=== PATIENT | female | born 1980 | race American Indian/Alaskan Native ===

== ENCOUNTER 2021-08-26 16:08 | Outpatient (REF) | payer OTHER, SELFPAY ==
--- NOTE | 2021-08-26 15:45 | PAPFT_PTH ---
PATIENT: Lien Mustafa LOC: [facility] U#:[id number] AGE/SX: 41/F ROOM: RE08/26/[address]: RAJWINDER Chris : 1980 BED: DIS: 08/26/2021 SPEC #: [id number] RECD: 08/26/21 18:18 STATUS: MANDEEP REQ #: [id number] JESSICA: 08/26/21 15:[address]: Luisa Alonso DEPT: [facility] Cytology RECD BY: Bela Montano ENTERED: 08/26/21 18:19 SP TYPE: PAPFT CORNELIUS DR: Unknown,Unknown Tissues: 1 - CX/ENDOCX FOR PAP SMEARS Procedures: PAP THIN PREP/[facility] Screening HPV DNA PROBE Comments: [id number]
== END 2021-08-26 16:09 | disposition home or self-care (01) ==
LOC: LBN 16:08
PROVIDERS: Visit Provider Nurse Practitioner Family
DX: Z12.4 Encounter for screening for malignant neoplasm of cervix (principal); Z11.51 Encounter for screening for human papillomavirus (HPV)
CPT/HCPCS: 88142; 87624

== ENCOUNTER 2021-12-26 16:23 | Outpatient (REF) | payer OTHER, SELFPAY ==
[2021-12-28 10:40] LABS: COVID-19 RT-PCR UVMMC Result Positive (Negative)
== END 2021-12-26 16:24 | disposition home or self-care (01) ==
LOC: LBN 16:23
PROVIDERS: Visit Provider Nurse Practitioner Family
DX: Z20.822 Contact with and (suspected) exposure to COVID-19 (principal)
CPT/HCPCS: U0003

== ENCOUNTER 2024-06-29 03:25 | Outpatient (CLI) | payer BC, SELFPAY ==
--- NOTE | 2024-06-29 07:15 | DI.MAMMO_ITS ---
Exam(s) MAMMO SCREENING EXAM: MAMMO SCREENING CLINICAL HISTORY: screening,z12.39 TECHNIQUE: Bilateral full field digital CC and MLO mammographic images were obtained with 3D tomosyn thesis and utilizing computer aided detection (CAD). COMPARISON: This is a baseline examination. FINDINGS: Masses/Architectural Distortion: There is a focal asymmetry in the upper central left breast on the M LO view 3 cm from the nipple. This may represent overlying fibroglandular tissue, but a spot richard cachorro views requested for further evaluation. Microcalcifications: No suspicious pleomorphic-type are seen. Skin Thickening/Nipple Retraction: None. IMPRESSION: 1. Focal asymmetry in the upper central left breast on the MLO view 3 cm from the nipple. 2. A spot compression views requested for further evaluation. Ultrasound may be indicated at that ti me. BI-RADS Category 0 - Incomplete: Need additional imaging evaluation Breast Density - Category B - Scattered areas of fibroglandular density Breast density category C or D implies that the patient has dense breast tissue. Dense breast tissue is very common and is not abnormal but dense breast tissue can make it harder to find cancer on a ma mmogram. Also, dense breast tissue may increase their breast cancer risk. This information about the result of the mammogram report was provided to the patient to raise their awareness. Use this report when you speak with the patient about their risks for breast cancer, which includes their family hist ory. At that time, you may recommend for more screening tests (Ultrasound or MRI) as they might be us eful based on their risk. A negative radiographic report should not delay biopsy if a dominant or clinically suspicious mass is present. Up to ten percent of cancers are not identified on mammography. A negative report may reinforce clinical impression. Adenosis and dense breasts may obscure an underlying neoplasm. False positive reports average 6 to 10%. Patient will receive a letter notifying them of these results.
--- NOTE | 2024-06-29 11:30 | DI.US_ITS ---
Exam(s) US PELVIS TRANSVAGINAL EXAM: US PELVIS TRANSVAGINAL CLINICAL HISTORY: abnl uterine bleeding,n93.9. TECHNIQUE: Transabdominal and transvaginal pelvic ultrasound was performed using standard protocol. COMPARISON: No exams were available for comparison FINDINGS: UTERUS: Position: Anteverted. Size: 9.8 long by 4.1 AP by 4.8 transverse cm Endometrium: 1.4 cm. Normal for patient's menstrual status. There is a 0.6 x 0.5 cm echogenic nodule seen within the endometrium on the left suggestive of a endometrial polyp. Myometrium: There is a 0.9 x 0.5 cm hypoechoic nodule adjacent to the endometrium anteriorly likely r eflecting a fibroid. Cervix: Nabothian cysts are present. OVARIES: Right: 3.4 x 1.6 x 3.1 cm Cyst or mass: No suspicious cystic or solid masses. Left: 3.0 x 2.7 x 3.1 cm Cyst or mass: No suspicious cystic or solid masses. DOPPLER: Color: Symmetric and uniform flow to both ovaries. CUL-DE-SAC: Free fluid: None. Other: None. IMPRESSION: 1. Endometrial stripe at the upper limits of normal in size. 2. Findings suggestive of a 0.6 x 0.5 cm endometrial polyp. 3. 0.9 x 0.5 cm uterine fibroid. 4. Unremarkable bilateral ovaries. DATA REPOSITORY:
== END 2024-06-29 03:45 ==
PROVIDERS: Visit Provider Nurse Practitioner Women's Health
DX: Z12.31 Encounter for screening mammogram for malignant neoplasm of breast (principal); N93.9 Abnormal uterine and vaginal bleeding, unspecified; R92.323 Mammographic fibroglandular density, bilateral breasts
CPT/HCPCS: 77063; 77067; 76830; 76856

== ENCOUNTER 2024-07-08 00:34 | Outpatient (CLI) | payer BC, SELFPAY ==
--- NOTE | 2024-07-08 | DI.US_ITS ---
Exam(s) MAMMO SCREEN CALL BACK UNI US BREAST LT LIMITED EXAM: MAMMO SCREEN CALL BACK UNI CLINICAL HISTORY: Focal asymmetry, upper central lt breast, 3 cm from nipple. TECHNIQUE: Mediolateral oblique spot compression digital Mammography views of the leftbreast with T omosynthesis and left breast ultrasound. COMPARISON: [facility] MAMMO SCREENING from 06/29/2024 FINDINGS: Mammography/Tomosynthesis: Masses: None seen. No persistent abnormality is seen in the subareolar region of the left breast. F indings are consistent with overlying fibroglandular tissue. Architectural Distortion: None seen. Microcalcifictions: No suspicious pleomorphic-type are seen. Skin Thickening/Nipple Retraction: None. Left breast US: Echotexture: Normal appearance of the glandular tissue. Shadowing: No suspicious foci. Cyst: None. Solid lesions: None seen. Ductal dilation: None. IMPRESSION: 1. No evidence of malignancy is noted. 2. Unless there is more urgent need, follow-up screening mammography is recommended, as per [place] [employer] guidelines. 3. The findings were discussed with the patient on the date of the examination. BI-RADS Category 1 - Negative Breast Density - Category B - Scattered areas of fibroglandular density A negative radiographic report should not delay biopsy if a dominant or clinically suspicious mass is present. Up to ten percent of cancers are not identified on mammography. A negative report may reinforce clinical impression. Adenosis and dense breasts may obscure an underlying neoplasm. False positive reports average 6 to 10%. Patient will receive a letter notifying them of these results.
--- OUTSIDE RECORDS SUMMARY | 2024-07-08 00:37 | XMS_ITS | Encounter Summary ---
Author Organization [facility] Address [address] [place] [address] Care Team Providers Care Director Peoplesoft Name Role Phone Unavailable Primary Care Provider Unavailabl e Encounter Details Date Type Department Care Team (Late st Contact Info) Description 08/27/2021 Lab Requisition [facility] Pathology & Laboratory Medicine - [address] [address] [address] [place] [address] Encounter for other general examination Social History Tobacco Use Types Packs/Day Years Used Date Smoking Tobacco: Never Assessed Comments Unknown Sex and Gender Information Value Date Recorded Sex Assigned at Not on file Legal Sex Female 14:06 EST Gender Identity Not on file Sexual Orientation Not on file documented as of this encounter Plan of Treatment Not on file documented as of this encounter Procedures Procedure Name Priority Date/Time Associated Diagnosis Comments PAP TEST Today 08/26/2021 15:45 EST Encounter for other general examination HPV DNA DETECTION WITH GENOTYPING, PCR Today 08/26/2021 15:45 EST Encounter for other general examination documented in this encounter Results * HUMAN PAPILLOMAVIRUS (HPV) DETECTION-HIGH RISK TYPES (08/26/2021 15:45 EST) HPV other High Risk types, PCR Negative Negative 09/05/2021 9:00 EST [facility] Comment:No E6 or E7 mRNA is detected from HPV types 16,18,31,33,35,39,45,51,52,56,58,59,66, and 68 by asphalt smoother mediated amplification. Papanicolaou smear specimen (specimen) CERVIX UTERI STRUCTURE / Unknown 08/26/2021 15:45 EST 09/03/2021 15:00 EST Luisa PURDY MICROBIOLOGY - GENERAL ORDER RENETTA Final Result Performing Organization Address City/[facility]/ZIP Co de Phone Number [facility] [address] [place] [address] * PAP TEST (08/26/2021 15:45 EST) Specimens A. Cervix and/or Endocervix , ThinPrep Imaging System with Manual Evaluation 09/05/2021 9:00 [facility] Specimen Adequacy Satisfactory for Evaluation - transformation zone component present 09/05/2021 9:00 [facility] General Categorization Negative for intraepithelial lesion or malignancy 09/05/2021 9:00 [facility] Attestation . 09/05/2021 9:00 [facility] at 0900 Clinical History SEE BELOW 09/05/19 9:00 [facility] HPV The result for the Human Papillomavirus (HPV) Detection-High Risk Types is Negative. No E6 or E7 mRNA is detected from HPV types 16,18,31,33,35,39 ,45,51,52,56,58,5 9,66, and 68 by asphalt smoother mediated amplification.Sari ting was performed on specimen [id number] and was resulted on 09/05/2021 0733 EST by YVETTE, LAB INSTRUMENT RESULTS IN 09/05/2021 9:00 [facility] Performing Lab [facility] 09/05/2021 9:00 [facility] Scanned Images 09/05/2021 9:00 [facility] Papanicolaou smear specimen (specimen) CERVIX UTERI STRUCTURE / Unknown 08/26/2021 15:45 EST 08/27/2021 14:09 EST Luisa PURDY PATHOLOGY ORDERABLES Final R esult [facility] [address] [place] [address] documented in this encounter Visit Diagnoses Diagnosis Encounter for other general examination documented in this encounter Additional Health Concerns Infection Onset Date Last Indicated Resolved Time COVID-19 12/26/2021 12/26/2021 01/15/2022 22:1 5 EDT documented as of this encounter
--- OUTSIDE RECORDS SUMMARY | 2024-07-08 00:37 | XMS_ITS | Referral Summary ---
Author Organization [facility] Address [address] [place] [address] Care Team Providers Care Size Worker Name Role Phone Unavailable Primary Care Provider Unavailabl e Social History Tobacco Use Types Packs/Day Years Used Date Smoking Tobacco: Never Assessed Comments Unknown Sex and Gender Information Value Date Recorded Sex Assigned at Not on file Legal Sex Female 14:06 EST Gender Identity Not on file Sexual Orientation Not on file Plan of Treatment Not on file
--- OUTSIDE RECORDS SUMMARY | 2024-07-08 00:37 | XMS_ITS | Encounter Summary ---
Author Organization [facility] Address [address] [place] [address] Care Team Providers Care Seasonal Package Handler Name Role Phone Unavailable Primary Care Provider Unavailabl e Encounter Details Date Type Department Care Team (Late st Contact Info) Description 12/27/2021 Lab Requisition [facility] Pathology & Laboratory Medicine - [address] [address] Outr Resulting Lab, Provider Social History Tobacco Use Types Packs/Day Years [...] Procedure Name Priority Date/Time Associated Diagnosis Comments ZZCOVID-19 TEST [facility] PCR Today 12/26/2021 15:00 EDT COVID-19 TESTING Routine 12/26/2021 15:0 0 EDT documented in this encounter Results * COVID-19 TEST [facility] PCR (12/26/2021 15:00 EDT) Swab 12/26/2021 15:0 0 EDT 12/27/2021 17:10 EDT us Provider Outr Resulting Lab MICROBIOLOGY - GENER AL ORDERABLES Final Result [facility] [address] [place] [address] * (ABNORMAL) COVID-19 TESTING (12/26/2021 15:00 EDT) COVID-19 rt-PCR Result Positive( AA) Negative 12/28/2021 10:35 EDT [facility] Comment: This test has not been FDA cleared or approved. This test has been authorized by FDA under an EUA for use by authorized laboratories. This test has been authorized only for detection of nucleic acid from 2019-nCoV, not for any other viruses or pathogens. This test is only authorized for the duration of the declaration that circumstances exist justifying the authorization of emergency use of in vitro diagnostic tests for detection and/or diagnosis of 2019-nCoV under section 564(b)(1) of Act, 21 U.S.C ?? 360bbb-3(b) (1), unless the authorization is terminated or revoked sooner. Testing was performed using the marcie SARS-CoV-2 assay ([employer] on the Marcie 6800 System Performing Lab [address] [facility] 12/28/2021 10:35 EDT [facility] Swab 12/26/2021 15:0 0 EDT 12/27/2021 17:10 EDT us Provider Outr Resulting Lab MICROBIOLOGY - GENER AL ORDERABLES Final Result [facility] [address] [place] [address] documented in this encounter Visit Diagnoses Not on filedocumented in this encounter Additional Health Concerns Infection Onset Date Last Indicated Resolved Time COVID-19 12/26/2021 12/26/2021 01/15/2022 22:1 5 EDT documented as of this encounter
--- OUTSIDE RECORDS SUMMARY | 2024-07-08 00:37 | XMS_ITS | Clinical Summary ---
Author Organization [facility] Address [address] [place] [id number] Care Team Providers Care Robotic Welding Operator Name Role Phone Unavailable Primary Care Provider Unavailabl e Social History Tobacco Use Types Packs/Day Years Used Date Smoking Tobacco: Never Assessed Comments Unknown Sex and Gender Information Value Date Recorded Sex Assigned at Not on file Legal Sex Female 14:06 EST Gender Identity Not on file Sexual Orientation Not on file Plan of Treatment Health Maintenance Due Date Last Done Comments Hepatitis C Screen 1980 Hepatitis B Vaccine (1 of 3 - 19+ 3-dose series) 01/03 COVID-19 Vaccine ( season) 2024
== END 2024-07-08 00:54 ==
LOC: DI 00:34
PROVIDERS: Visit Provider Nurse Practitioner Women's Health
DX: Z12.31 Encounter for screening mammogram for malignant neoplasm of breast (principal); R92.323 Mammographic fibroglandular density, bilateral breasts
CPT/HCPCS: 76642; 77063; 77067

== ENCOUNTER 2024-07-28 09:46 | Outpatient (CLI) | payer BC, SELFPAY ==
[2024-07-28 10:24] LABS: Abs Immature Grans 0.01 10^3/uL (0.0-0.06); Absolute Basophil Count 0.03 10^3/uL (0.0-0.2); Absolute Eosinophil Count 0.08 10^3/uL (0.0-0.7); Absolute Lymphocyte Count 2.16 10^3/uL (1.2-3.4); Absolute Monocyte Count 0.31 10^3/uL (0.1-0.8); Absolute Neutrophil Count 3.09 10^3/uL (1.2-6.7); Basophils % 0.5 %; Eosinophils % 1.4 %; HCT 36.9 % (36.0-46.0); Immature Grans % 0.2 %; MCH 28.4 pg (27.0-33.0); MCHC 32.5 % (32.0-36.0); MCV 87 fL (80-95); Monocytes % 5.5 %; Neutrophils % 54.4 %; Platelet Count 326 10^3/uL (130-400); RBC 4.22 10^6/uL (3.93-5.22); RDW-SD 44.8 fL; WBC 5.68 10^3/uL (4.4-10.8)
[2024-07-28 11:00] LABS: Cholesterol 172 mg/dL (<200); HDL Cholesterol 55 mg/dL (40-60); LDL CHOLESTEROL 101 mg/dL (<100); Triglyceride 111 mg/dL (<150)
[2024-07-28 11:07] LABS: ALT 26 U/L (14-59); AST 19 U/L (15-37); Albumin 3.5 g/dL (3.4-5.0); Alkaline Phosphatase 50 U/L (46-116); Anion Gap 7.1 mmol/L (3-11); BUN 15 mg/dL (7-18); CO2 26.9 mmol/L (21.0-32.0); CREATININE 0.9 mg/dL (0.55-1.02); Calcium 8.9 mg/dL (8.5-10.1); Chloride 108 mmol/L (98-107); Estimated GFR 81.86 (mL/min/1.73m2); Glucose 93 mg/dL (74-106); HCG Quant, Pregnancy 1 mIU/mL (1-3); Potassium 4.4 mmol/L (3.5-5.1); Sodium 142 mmol/L (136-145); TSH (W/Ref FT4) 2.23 uIU/mL (0.36-3.74); Total Protein 7.5 g/dL (6.4-8.2)
[2024-07-28 19:01] LABS: FSH 15.6 mIU/mL (See Note)
== END 2024-07-28 09:47 | disposition home or self-care (01) ==
LOC: LBO 09:47
PROVIDERS: Visit Provider Obstetrics & Gynecology
DX: N93.9 Abnormal uterine and vaginal bleeding, unspecified (principal); Z13.9 Encounter for screening, unspecified; N92.0 Excessive and frequent menstruation with regular cycle; Z13.220 Encounter for screening for lipoid disorders; O26.859 Spotting complicating pregnancy, unspecified trimester
CPT/HCPCS: 36415; 80053; 83721; 86850; 86900; 86901; 82465; 83001; 83718; 84443; 84478; 84702; 85025

== ENCOUNTER 2024-08-10 07:22 | Day surgery (SDC) | payer BC, SELFPAY ==
[2024-08-10 07:42] VITALS: BP 109/58; PULSE 62; RESP 16; TEMP 36.8; O2SAT 97
[2024-08-10] MEDS: Lactated Ringers 1,000 ML 80 ML IV (07:50)
--- NOTE | 2024-08-10 07:53 | W.ANESPRE ---
General Info Date of Service Date Performed: 08/10/24 Height: 5 ft 3.5 in Weight: 90.2 kg Body Mass Index (BMI): 34.7 Surgical Procedure: Operation Date: 08/10/24 09:10 Proposed Procedure Side Surgeon p Dilation & Curettage, Polypectomy Dorothy York MD s Insertion of IUD Dorothy York MD Meds Allergies and Home Medications Allergies Allergy/AdvReac Type Severity Reaction Status Date / Time latex Allergy Intermediate Skin Rash Verified 08/10/24 07:39 pencillin AdvReac Mild Other (See Uncoded 08/10/24 07:39 Comment) Home Medication ?Medication ?Instructions ?Recorded ascorbate calcium (vitamin C) 500 500 mg PO DAILY PRN 07/28/24 mg tablet Current Visit Medications: Current Medications Generic Name Dose Route Start Last Admin Trade Name Freq PRN Reason Stop Dose Admin Ringer's Solution 1,000 mls @ 80 mls/hr 08/10/24 07:15 IV 09/09/24 07:14 INFUSION OLE IV Miscellaneous Supplies 1 each 08/10/24 06:00 Iv Access IV 08/10/24 23:59 DIRECTED OLE Sodium Chloride 0 ml 08/10/24 06:00 Normal Saline Flush 10 Ml Syr IV 08/10/24 23:59 PRN PRN Sodium Chloride 0 ml 08/10/24 06:00 Normal Saline 10 Ml Vial IJ 08/10/24 23:59 DIRECTED PRN Sterile Water 0 ml 08/10/24 06:00 Water,Injection,Sterile 10 Ml Vial IJ 08/10/24 23:59 DIRECTED PRN PFSH Active Problems Active Problems: Problem Status Onset Code Abnormal uterine bleeding (AUB) Acute N93.9 Medical History Medical History Asthma Genital warts Migraine Tobacco Smoking/Tobacco Use Status: Never Passive smoking exposure: No Second hand exposure: No Alcohol Alcohol Intake: never Substance Use Substance use: Never Substance use type: does not use Prental History History 1 Para 1 Hx # Term Pregnancies Multiple births Hx # Pregnancies Ectopic pregnancies AB induced Hx Number of Living Children 1 AB spontaneous Vital Signs and Lab Results Vital Signs Most Recent Vital Signs in EMR: Most Recent Vital Signs Temp Pulse Resp BP Pulse Ox 36.8 C 62 16 109/58 L 97 08/10/24 07:42 08/10/24 07:42 08/10/24 07:42 08/10/24 07:42 08/10/24 07:42 Lab Results Blood Type / Crossmatch: Antibody Screen NEGATIVE 07/28/24 Complete Blood Count: White Blood Count 5.68 10^3/uL (4.4-10.8) 07/28/24 10:10 Red Blood Count 4.22 10^6/uL (3.93-5.22) 07/28/24 10:10 Hemoglobin 12.0 g/dL (11.2-15.7) 07/28/24 10:10 Hematocrit 36.9 % (36.0-46.0) 07/28/24 10:10 Platelet Count 326 10^3/uL (130-400) 07/28/24 10:10 Complete Metabolic Panel: Sodium 142 mmol/L (136-145) 07/28/24 10:10 Potassium 4.4 mmol/L (3.5-5.1) 07/28/24 10:10 Chloride 108 mmol/L (98-107) H 07/28/24 10:10 Carbon Dioxide 26.9 mmol/L (21.0-32.0) 07/28/24 10:10 BUN 15 mg/dL (7-18) 07/28/24 10:10 Creatinine 0.9 mg/dL (0.55-1.02) 07/28/24 10:10 Est GFR (CKD-EPI 2020) 81.86 (mL/min/1.73m2) 07/28/24 10:10 Calcium 8.9 mg/dL (8.5-10.1) 07/28/24 10:10 Albumin 3.5 g/dL (3.4-5.0) 07/28/24 10:10 Glucose 93 mg/dL (74-106) 07/28/24 10:10 Liver Function Panel: Alanine Aminotransferase (ALT/SGPT) 26 U/L (14-59) 07/28/24 10:10 Aspartate Amino Transf (AST/SGOT) 19 U/L (15-37) 07/28/24 10:10 Coagulation Panel: No Data to Display Cardiac Panel: No Data to Display Arterial Blood Gas: No Data to Display Venous Blood Gas: No Data to Display Pancreas Panel: No Data to Display Thyroid Panel: Thyroid Stimulating Hormone (TSH) 2.23 uIU/mL (0.36-3.74) 07/28/24 10:10 Infectious Disease: No Data to Display Blood Cultures: No Data to Display Toxicology Panel: No Data to Display Panel: Beta HCG, Quantitative 1 mIU/mL (1-3) 07/28/24 10:10 Anesthesia Assessment and Plan Anesthesia History Personal History: No History of General Anesthesia Family History: No Family History of Anesthesia Complications Exercise Tolerance Exercise Tolerance: Metabolic Equivalents>4 Cardiac & Pulmonary Exam Cardiac Exam: Normal S1/S2 Heart Sounds Pulmonary Exam: Clear Bilateral Breath Sounds Implantable Cardiac Device Does patient have a Pacemaker or an ICD?: No Airway Exam Known Difficult Airway: No Mallampati Class: 2 Mouth Opening: Normal (> 3cm) Thyromental Distance: Greater than 3 cm Neck Range of Motion: Full ROM Neck Circumference: Normal Teeth Condition: Normal Dentition ASA Classification ASA Score: ASA 2 Emergency Case?: No NPO Status NPO Status: NPO Clears >2 hours, Solids >8 hours Status Status: Negative HCG Anesthesia Plan Resuscitation Status: Full Code Anesthesia Technique: General Anesthesia Airway Planned: LMA Monitors Used: Standard Monitors Preoperative Comments:: 44 yo female for D/C. Sig PMHx: asthma (has not rx inhaler and does not use one. Seems mostly with heavy exertion), migraine (aura/visual type. no meds for it). never smoker, no EtOH. Denies GERD outside of spicy food. Appropriately NPO.
[2024-08-10 07:56] VITALS: BMI 34.7
--- NOTE | 2024-08-10 09:35 | ENDOMET_PTH ---
PATIENT: Lien Mustafa LOC: [facility] U#:[id number] AGE/SX: 44/F ROOM: RE08/10/[address]: Dorothy York MD : 1980 BED: DIS: 08/10/2024 SPEC #: [id number] RECD: 08/10/24 12:31 STATUS: MANDEEP REQ #: [id number] JESSICA: 08/10/24 09:[address]: Dorothy York DEPT: Surgical Specimen RECD BY: Bela Montano ENTERED: 08/10/24 12:32 SP TYPE: Endomet OTHR DR: None Tissues: 1 - ENDOMETRIUM BX/LIZETTE Procedures: GROSS AND MICRO LEVEL 4 Comments: [id number]
[2024-08-10] MEDS: Silver Nitrate Stick 1 EACH (09:38)
[2024-08-10 09:49] VITALS: BP 105/93; PULSE 60; RESP 16; TEMP 36.1; O2SAT 95
--- NOTE | 2024-08-10 10:03 | W.PM.OP ---
Operative Note Operative Note PRE-OP DIAGNOSIS: AUB, endometrial polyp POST-OP DIAGNOSIS: same PROCEDURE: D&C, polypectomy, Liletta IUD insertion SURGEON: Dorothy York Refer to Anesthesia Record ESTIMATED BLOOD LOSS: 5 COMPLICATIONS: None Patient was transported to: same day Patient's condition: stable Indications: AUB with suspected endometrial polyp on sono. Findings: A large amount of endometrial tissue was collected including polypoid appearing tissue. Procedure Description: After informed consent was signed the patient was taken to the operating room and given General room air anesthesia. She was placed in the dorsal lithotomy position in the [facility]. A time out was performed. Her bladder was drained of urine if not done immediately prior to entrance to the OR. The vagina was prepped with betadyne solution. Exam under anesthesia revealed normal external genitalia, vagina normal for age and a normal sized uterus. A speculum was placed into the vagina to reveal the cervix. The uterine length was measured at 8.5cm. The anterior lip of the cervix was grasped with a single tooth tenaculum. The cervix was dilated. The small curette was used to curette the endometrial lining including polypoid tissue. The Liletta IUD was set at 8.5cm and inserted into the uterine cavity. The strings were trimmed to ~3cm. The tenaculum was removed from the cervix with good hemostasis with silver nitrate. The speculum was removed from the vagina. The patient was placed back into the supine position. She was moved to the stretcher and taken to the recovery room in stable condition. Date of Procedure: 08/10/24
[2024-08-10 10:17] VITALS: BP 121/76; PULSE 57; RESP 16; TEMP 36.1; O2SAT 99
--- NOTE | 2024-08-10 10:38 | W.ANESPOSTOP ---
Postoperative Evaluation Date, Time and Location Date Performed: 08/10/24 Time Performed: 10:38 Patient Location: Day Surgery Unit Vital Signs Most Recent Imported Vital Signs: Most Recent Vital Signs Temp Pulse Resp BP Pulse Ox 36.1 C L 57 L 16 121/76 99 08/10/24 10:17 08/10/24 10:17 08/10/24 10:17 08/10/24 10:17 08/10/24 10:17 Pain Score Most Recent Pain Score: Most Recent Pain Score Pain Level 0 08/10/24 09:49 Assessment Mental Status: Awake (Alert & Oriented to Patient Baseline) Airway and Respiratory Function: Patent airway with normal (patient baseline) respiratory exam Cardiovascular Function: Hemodynamically Stable Hydration Status: Adequately Hydrated Nausea & Vomiting: No Nausea or Vomiting Pain: Pt. Denies Any Pain Peripheral Nerve Block: Patient did not receive a nerve block
== END 2024-08-10 10:45 | disposition home or self-care (01) ==
PROVIDERS: Visit Provider Obstetrics & Gynecology
PROC: (CPT 58120; principal; 2024-08-10 09:00)
PROC: (CPT 58120; 2024-08-10 09:00)
DX: N93.9 Abnormal uterine and vaginal bleeding, unspecified (principal); N84.0 Polyp of corpus uteri
CPT/HCPCS: 58120; 58300; 81025; 88305; J0665; J1100; J1885; J2003; J2004; J2250; J2405; J2704; J3010